=== PATIENT | female | born 1955 | race Caucasian/White ===

== ENCOUNTER 2016-09-18 14:41 | Emergency (ER) | payer BC ==
[2016-09-18 14:52] VITALS: BP 123/80
[2016-09-18] MEDS ORDERED: Ibuprofen TAB* 600 MG PO ONE (14:55)
--- NOTE | 2016-09-18 15:06 | UC ---
Upper Extremity HPI - HPI Summary HPI Summary: RAZIA after being pulled off-balance by dog today at 1400. Swelling in L wrist with pain radiating up arm. Denies hx of sx or fx in LUE. - History of Current Complaint Chief Complaint: UCUpperExtremity Stated Complaint: ARM INJURY Time Seen by Provider: 09/18/16 14:45 Hx Obtained From: Patient ?: No Onset/Duration: Sudden Onset Severity Initially: Moderate Severity Currently: Moderate Location Of Pain: Is Diffuse Character: Dull, Aching, Throbbing Alleviating Factor(s): Elevation, Ice Associated Signs And Symptoms: Positive: Swelling, Numbness/Tingling Related History: Dominant Hand Right - Allergies/Home Medications Allergies/Adverse Reactions: Allergies Allergy/AdvReac Type Severity Reaction Status Date / Time No Known Allergies Allergy Verified 09/18/16 14:52 PMH/Surg Hx/FS Hx/Imm Hx - Additional Past Medical History Additional PMH: osteopenia Endocrine History: Dyslipidemia - Surgical History Surgical History: Yes Surgery Procedure, Year, and Place: APPENDECTOMY, D&C - Family History Known Family History: Positive: Other - osteoporosis - Social History Alcohol Use: None Substance Use Type: None Smoking Status (MU): Never Smoked Tobacco Review of Systems Constitutional: Negative Skin: Negative Eyes: Negative ENT: Negative Respiratory: Negative Cardiovascular: Negative Gastrointestinal: Negative Genitourinary: Negative Motor: Negative Neurovascular: Negative Musculoskeletal: Arthralgia, Edema Neurological: Negative Psychological: Negative All Other Systems Reviewed And Are Negative: Yes Physical Exam Triage Information Reviewed: Yes Appearance: Well-Appearing, Well-Nourished, Pain Distress - mild Vital Signs: Initial Vital Signs Temp 97.7 F 09/18/16 14:48 Pulse 61 09/18/16 14:48 Resp 16 09/18/16 14:48 BP 123/80 09/18/16 14:48 Pulse Ox 100 09/18/16 14:48 Vital Signs Reviewed: Yes Eye Exam: Normal Eyes: Positive: Conjunctiva Clear ENT Exam: Normal ENT: Positive: Normal ENT inspection, Hearing grossly normal, Pharynx normal, TMs normal Dental Exam: Normal Neck exam: Normal Neck: Positive: Supple, Nontender, No Lymphadenopathy Respiratory Exam: Normal Respiratory: Positive: Chest non-tender, Lungs clear, Normal breath sounds, No respiratory distress, No accessory muscle use Cardiovascular Exam: Normal Cardiovascular: Positive: RRR, No Murmur Musculoskeletal Exam: Other - tender, swelling in L distal radius Musculoskeletal: Positive: Strength Limited @ - L bacon slicer, ROM Limited @ - L wrist Neurological Exam: Normal Neurological: Positive: Alert Psychological Exam: Normal Skin Exam: Normal Procedures - Splinting Location: L wrist Hand-Made Type: orthoglass Splint: wrist Pre-Proc Neuro Vasc Exam: normal Post-Proc Neuro Vasc Exam: normal Upper Extremity Course/Dx - Differential Dx/Diagnosis Provider Diagnoses: L radius distal fracture closed, impacted, comminuted, intra -articular. L ulnar styloid process avulsion fracture Discharge - Discharge Plan Condition: Stable Disposition: HOME Patient Education Materials: Wrist Fracture in Adults (ED) Referrals: Haris Sheehan MD [Primary Care Provider] - Colin Gramajo MD [Medical Doctor] - 4 Days Additional Instructions: Keep injured wrist elevated as much as possible over the next 3 days and arrange for follow-up with the orthopedics office. Keep the splint on all the time until you are fitted for a cast or another splint.
--- NOTE | 2016-09-18 15:27 | RAD ---
INDICATION: Left wrist injury. TECHNIQUE: 3 views of the left wrist were obtained. FINDINGS: There is diffuse soft tissue swelling. There is a transverse comminuted fracture of the distal radius which is slightly impacted. A component of the fracture extends to the distal articular surface. In addition, there is a small avulsion fracture fragment arising from the tip of the ulnar styloid process. IMPRESSION: 1. TRANSVERSE, SLIGHTLY IMPACTED, COMMINUTED, INTRA-ARTICULAR FRACTURE OF THE DISTAL RADIUS. 2. FRACTURE OF THE TIP OF THE ULNAR STYLOID PROCESS.
== END 2016-09-18 16:20 | disposition home or self-care (01) ==
LOC: UCEAST 14:41
DX: S52.572A Other intraarticular fracture of lower end of left radius, initial encounter for closed fracture (principal); S52.612A Displaced fracture of left ulna styloid process, initial encounter for closed fracture; W18.31XA Fall on same level due to stepping on an object, initial encounter
CPT/HCPCS: 99212; A9270-GY; G0463

== ENCOUNTER 2016-11-21 05:58 | Day surgery (SDC) | payer BC ==
--- NOTE | 2016-11-02 21:24 | HP ---
CC: Dr. Gomez * HISTORY AND PHYSICAL: DATE OF PLANNED ADMISSION AND SURGERY: 11/21/16 HISTORY OF PRESENT ILLNESS: Ms. Mercedes is a 61-year-old white female, who is admitted with 1 cm calculus of the lower pole of the left kidney for shockwave lithotripsy. I had seen Ms. Mercedes back in 2009 because of recurrent episodes of gross painless hematuria. At that time she was worked up with a cystoscopy which was negative and a CT urogram which was normal. Her urine cytologies were also negative. She continued to have microscopic hematuria, but she has remained asymptomatic. I saw her recently because of recurrence of on and off pinkish colored urine. This was totally asymptomatic, not associated with any flank or abdominal pain and no voiding symptoms. She did not have any symptoms to suggest renal colic. She had a renal ultrasound, which showed a 1 cm non-obstructing calculus in the lower pole calyx of the left kidney. No other abnormalities were noted. She then had a KUB, which confirmed the presence of an 8 mm radiopaque calculus in the lower pole calyx of the left kidney. No other abnormal calcifications were noted. Because of that finding, the patient is admitted for the above procedure. PAST MEDICAL HISTORY AND SYSTEM REVIEW: She is in very good health. She is on simvastatin for hyperlipidemia. She takes glucosamine for arthritis. She is on calcium supplement. She is otherwise in very good health. She denies any cardiac or pulmonary diseases or symptoms. She denies any allergies to medications. She is a nonsmoker. PHYSICAL EXAMINATION GENERAL: Pleasant and healthy looking white female. VITAL SIGNS: Blood pressure 110/76, pulse of 74. LUNGS: Clear. HEART: Regular and rhythmic. No murmurs. ABDOMEN: Soft. No masses, no tenderness, and no CVA tenderness. IMPRESSION: 1. A 1 cm calculus in the lower pole calyx of the left kidney. 2. Episodes of gross hematuria, most likely due to above. PLAN: Plan is for shockwave lithotripsy of the left renal calculus with possible placement of a left ureteral stent. I discussed the above plans in detail with the patient. Some of the potential complications of the procedure including hematuria, left renal colic, possible need for ureteroscopy for stone extraction if the stone fragments obstruct her ureter. All her questions were answered. [id number]/[facility] #: [id number] PRISCILLA
[2016-11-21] MEDS ORDERED: cefTRIAXone VIAL(*) 1,000 MG VIAL ONE (06:00)
[2016-11-21] MEDS ORDERED: Famotidine IV* 10 MG/ML 2 ML (20 mg) IV ONE (06:00)
[2016-11-21] MEDS ORDERED: Famotidine IV* 10 MG/ML 2 ML (20 mg) ONE (06:00)
[2016-11-21] MEDS ORDERED: Buffered Lidocaine 0.9% SYRIN* 5 ML/SYR SYRINGE INTRADERM ONE (06:00)
[2016-11-21] MEDS ORDERED: Buffered Lidocaine 0.9% SYRIN* 5 ML/SYR SYRINGE ONE (06:01)
[2016-11-21] MEDS ORDERED: cefTRIAXone VIAL(*) 1,000 MG in NS 0.9% 50 ML* 50 ML IVPB ONE (07:00)
[2016-11-21] MEDS ORDERED: Iohexol 180 (CONTRAST) 10 ML SDV IV ONE (07:36)
[2016-11-21] MEDS ORDERED: fentaNYL* 50 MCG/ML 2 ML VIAL (100 MCG VIAL) ONE (07:45)
[2016-11-21] MEDS ORDERED: Midazolam* 1 MG/ML 5 ML VIAL (5 MG) ONE (07:45)
[2016-11-21] MEDS ORDERED: Propofol* 10 MG/ML 20 ML BTL IV PUSH ONE (08:07)
[2016-11-21] MEDS ORDERED: Dexamethasone IV* 4 MG/ML 1 ML (4 MG) ONE (08:07)
[2016-11-21] MEDS ORDERED: Ondansetron INJ* 2 MG/ML VIAL ONE (08:07)
[2016-11-21] MEDS ORDERED: Lidocaine 2% PF * 5 ML VIAL ONE (08:07)
--- NOTE | 2016-11-21 08:20 | RAD ---
Indication: Preshock wave lithotripsy. LEFT renal stone. Comparison: October 19, 2016 Technique: Supine abdomen. Report: 0.7 cm lower pole LEFT renal stone is unchanged. No additional conspicuous suspicious calcifications at the level of the kidneys or along the expected course of the ureters. Innumerable pelvic phleboliths. Large volume of stool in the colon. Unremarkable soft tissue contours. IMPRESSION: Unchanged 0.7 cm LEFT renal stone.
[2016-11-21] MEDS ORDERED: DiMENhydriNATE IV* 50 MG/ML VIAL IV PUSH PRN (08:32)
[2016-11-21] MEDS ORDERED: HYDROmorphone* 1 MG/ML 1 ML SYR IV PRN (08:32)
[2016-11-21] MEDS ORDERED: oxyCODONE TAB* 5 MG TAB PO PRN (08:32)
[2016-11-21] MEDS ORDERED: Acetaminophen TAB* 325 MG PO PRN (08:32)
[2016-11-21 10:03] VITALS: BP 128/84
--- NOTE | 2016-11-21 22:33 | OP ---
CC: Dr. Sheehan * DATE OF OPERATION: 11/21/16 - [facility] DATE OF : 59 SURGEON: Anselmo Osorio MD ANESTHESIOLOGIST: Vanessa Brannon MD ANESTHESIA: General PRE-OP DIAGNOSIS: Left renal calculus (8 to 10 mm). POST-OP DIAGNOSIS: Left renal calculus (8 to 10 mm). OPERATIVE PROCEDURE: Shockwave lithotripsy of left renal calculus. INDICATIONS: Ms. Mercedes is a 61-year-old white female who was worked up because of painless gross hematuria. Cystoscopy was negative. Renal ultrasound and KUB showed an 8 to 10 mm calculus in the lower pole calyx of the left kidney. No hydronephrosis was noted. Because of the above history and findings, the patient was admitted for the above procedure. PATHOLOGY: Preoperative KUB confirmed the presence of an 8 to 10 mm rather dense calculus in the lower pole calyx of the left kidney. No other abnormal calcifications were noted. DESCRIPTION OF PROCEDURE: After successful general anesthesia, patient was placed in the supine position on the shockwave lithotripsy table. The left renal calculus was visualized in both the PA and the oblique x-ray views and the position of the generator and the patient were adjusted to have the stone in the focus of the shock waves. A total of 2,400 shocks were then delivered at the rate of 90 shocks per minute. Three minutes break was taken after the initial 300 shocks. The proper positioning and fragmentation of the stone were monitored periodically. At the completion of the treatment, there seemed to a slight change in the configuration of the stone, possibly indicating its fragmentation. Because the stone is located in the lower pole calyx, it was decided not to put a stent. The patient tolerated the procedure well and left the operating room in good condition. The plan is to evaluate the patient in the office next week with a followup KUB and renal ultrasound. If the stone is not fragmented, then the patient will require either a PCNL or URS. [id number]/[facility] #: [id number] MTDD
== END 2016-11-21 10:04 | disposition home or self-care (01) ==
LOC: OR 05:58
PROVIDERS: ATTEND Urology
DX: N20.0 Calculus of kidney (principal); E78.5 Hyperlipidemia, unspecified; M19.90 Unspecified osteoarthritis, unspecified site
CPT/HCPCS: 74000; J0696; J1100; J2250; J2405; J2704; J3010

== ENCOUNTER 2019-05-01 10:13 | Emergency (ER) | payer BC ==
--- OUTSIDE RECORDS SUMMARY | 2019-05-01 10:23 | XMS REPORT | Continuity of Care Document ---
:1955 External Reference #:[id number] Author Name Candie Lam (transmitted by agent of provider Preet Gomez) Address [address] [place] [id number] Care Team Providers Name Role Phone Loli Humphrey MD - Obstetrics & Care Team Information Cpo Gynecology Problems Active Problems Provider Date Pure hypercholesterolemia Candie Lam Onset: 08/24/2012 Social History Type Date Description Comments Sex Unknown Tobacco Use Start: Unknown Denies Cigarette Use ETOH Use Denies alcohol use Recreational Drug Use Denies Drug Use Tobacco Use Start: Unknown Non Smoker Smoking Status Reviewed: 03/22/19 Non Smoker Sun Exposure minimum amount of sun exposure Sun Exposure Uses sunscreen Seat Belt/Car Seat always uses seat belt Allergies, Adverse Reactions, Alerts Description No Known Drug Allergies Medications Active Medications SIG Qnty Indications Ordering Provider Date B 12 one po daily Unknown 10/11/2017 Ginkgo Biloba one po daily Unknown 10/11/2017 Capsules Simvastatin Take One Tablet 90tabs Haris Sheehan, 12/01/2015 40mg By Mouth Every M.D. Tablets Evening Glucosamine daily Haris Sheehan, 09/27/2013 Liquid M.D. Calcium 1200 w/Vitamin D Haris Sheehan, 05/30/2013 M.D. [id number] Chewtabs Medications Administered in Office Medication SIG Qnty Indications Ordering Provider Date H1N1 Swine Flu Vaccine Nurse's Schedule 04/10/2009 Injection Immunizations CPT Code Status Date Vaccine Lot # [id number] Given 11/26/2018 Influenza Virus Vaccine, Quadrivalent, Split, Preservative Free 46198 Given 12/09/2017 Influenza Virus Vaccine, Quadrivalent, Split, Preservative Free 30493 Given 11/10/2016 Influenza Virus Vaccine, Quadrivalent, Split, Preservative Free 34135 Given 11/10/2016 Prevnar 13 U-Flu Given 11/20/2015 Influenza,Unspecified 57050 Given 11/13/2014 Flu, Split Virus 3Yrs 24496 Given 11/20/2013 Flu, Split Virus 3Yrs 57221 Given 12/25/2012 Flu, Split Virus 3Yrs 73585 Given 11/04/2011 Flu, Split Virus 3Yrs 16665 Given 08/24/2011 Adacel or Boostrix, TDaP [id number] 63128 Given 12/12/2008 Flu, Split Virus 3Yrs 13628 Given 02/05/2007 Flu, Split Virus 3Yrs [id number] 57758 Given 03/03/2006 Adacel or Boostrix, TDaP [id number] 20173 Given 01/23/2006 Flu, Split Virus 3Yrs [id number] 96560 Given 03/27/2002 Flu, Split Virus 3Yrs 93124 Given 03/27/2001 Hep B Immunization, Adult Vital Signs Date Vital Result Comment 03/22/2019 8:23am BP Systolic 110 mmHg BP Diastolic 66 mmHg Height 64.25 inches 5'4.25" Weight 150.00 lb BMI (Body Mass Index) 25.5 kg/m2 10/26/2017 10:04am BP Systolic 116 mmHg BP Diastolic 70 mmHg Results Test Acquired Date Facility Test Result H/L Range Note Laboratory test 03/22/2019 [facility] Cytology SEE RESULT 1 finding [phone] BELOW Lipid Profile 03/22/2019 [facility] Triglycerides 150 mg/dL 2 (Trig/Chol/HDL) [phone] Cholesterol 214 mg/dL 3 HDL Cholesterol 49.5 mg/dL 4 LDL Cholesterol 135 mg/dL 5 Basic Metabolic Panel 03/22/2019 [facility] Sodium 142 mmol/L Normal 135-145 [phone] Potassium 4.1 mmol/L Normal 3.5-5.0 Chloride 107 mmol/L Normal 101-111 Co2 Carbon Dioxide 30 mmol/L Normal 22-32 Anion Gap 5 mmol/L Normal 2-11 Glucose 93 mg/dL Normal 70-100 Blood Urea Nitrogen 10 mg/dL Normal 6-24 Creatinine 0.70 mg/dL Normal 0.51-0.95 BUN/Creatinine Ratio 14.3 Normal 8-20 Calcium 9.0 mg/dL Normal 8.6-10.3 Egfr Non- 85.1 >60 Egfr 102.9 >60 6 Laboratory test 03/22/2019 [facility] Vitamin B12 860 pg/mL Normal 180-914 7 finding [phone] 1,25 Dihydroxy 03/22/2019 [facility] Calcitriol 40 pg/mL 18-78 8 Vitamin D [phone] 1 SEE RESULT BELOW Name: MARLY MCPHERSON : [address]: Mercedes PEDRAZA Acct: [id number] Unit: [id number] AGE: 63 Location: [facility] Re03/22/19 SEX: F Status: REG REF SPEC: [id number] ROSITA: 03/22/19-[address]: Mercedes PEDRAZA REQ: [id number] RECD: 03/22/19994 STATUS: SOUT _ ORDERED: TP IMAGE ANALYS, PLATFORM WORKER PHYS INTERP, HPV/Thin Prep COMMENTS: [id number] FINAL DIAGNOSIS Negative for Intraepithelial lesion or Malignancy Trichomonas vaginalis Reactive cellular changes associated with Inflammation (includes typical repair) HPV RESULTS Date Time Test Result Flag (u) Normal Range 03/22/19 1135 HPV STERLING Negative Negative The high-risk HPV types detected by the assay include: 16, 18, 31, 33, 35, 39, 45, 51, 52, 56, 58, 59, 66, and 68. SPECIMEN(S) RECEIVED A. Ectocervical/Endocervical CYTOLOGY ADEQUACY Specimen Adequacy: Satisfactory of evaluation Transformation zone component identified CONTINUED ON NEXT PAGE DEPARTMENT OF PATHOLOGY, [address] [place] [address] Aly Suarez M.D. Director [facility] # [id number] CYTOLOGY PATIENT INFORMATION Patient Information: HPV: High risk HPV RNA testing regardless of pap results. Actual Specimen Date: 03/22/19 ?: N Post Menopausal?: Y Hysterectomy?: N Signed by and Reported on: Linh Berrios MD 03/28/19 7364 This Pap test was evaluated with the assistance of the [employer] Test Imaging System. Due to cytologic findings at the wood form builder microscope, comprehensive manual rescreening by a Clothes Separator may be required. The Pap Smear is a screening test designed to aid in the detection of premalignant and malignant conditions of the uterine cervix. It is not a diagnostic procedure and should not be used as the sole means of detecting cervical cancer. Both false- positive and false- negative reports do occur. Depending on your risk status, a Pap smear should be obtained and evaluated every 1-3 years. END OF REPORT DEPARTMENT OF PATHOLOGY, [address] [place] [address] Aly Suarez M.D. Director [facility] # [id number] 2 Desirable: <150 Borderline High: 150-199 High: 200-499 Very High: >500 3 Desirable: <200 Borderline High: 200-239 High: >239 4 Low: <40 Desirable: 40-60 High: >60 5 Desirable: <100 Near Optimal: 100-129 Borderline High: 130-159 High: 160-189 Very High: >189 6 Because ethnic data is not always readily available, this report includes an eGFR for both -Americans and non- Americans. The National Kidney Disease Education Program (NKDEP) does not endorse the use of the MDRD equation for patients that are not between the ages of 18 and 70, are , have extremes of body size, muscle mass, or nutritional status, or are non- or non-. According to the National Kidney Foundation, irrespective of diagnosis, the stage of the disease is based on the level of kidney function: Stage Description GFR(mL/min/1.73 m(2)) 1 Kidney damage with normal or decreased GFR 90 2 Kidney damage with mild decrease in GFR 60-89 3 Moderate decrease in GFR 30-59 4 Severe decrease in GFR 15-29 5 Kidney failure <15 (or dialysis) 7 Normal Range 180 to 914 Indeterminate Range 145 to 180 Deficient Range <145 8 ADDITIONAL INFORMATION This test was developed and its performance characteristics determined by [facility] in a manner consistent with CLIA requirements. This test has not been cleared or approved by the U.S. Food and Drug Administration. Test Performed by: [facility] [address] [place] [address] Assistant Commissioner: Asif Dawson M.D. Ph.D.; CLIA# [id number] Procedures Date Code Description Status 03/22/2019 86062 Brief Emotional/Behav Assessment W/ Scoring Doc Per Completed Standard Inst 03/23/2018 42301107 Mammogram Completed 06/25/2016 53923417 Colonoscopy Completed Medical Devices Description No Information Available Encounters Type Date Location Provider Dx Diagnosis Office Visit 03/22/2019 Main Office Mercedes Roa P.A. R29.810 Facial weakness 8:00a E78.00 Pure hypercholesterolemia, unspecified Z12.31 Encntr screen mammogram for malignant neoplasm of breast Z12.4 Encounter for screening for malignant neoplasm of cervix Z00.00 Encntr for general adult medical exam w/o abnormal findings D51.9 Vitamin B12 deficiency anemia, unspecified E55.9 Vitamin D deficiency, unspecified Z13.31 Encounter for screening for depression Z68.25 Body mass index (BMI) 25.0-25.9, adult Assessments Date Code Description Provider 03/22/2019 R29.810 Facial weakness Mercedes Roa, P.A. 03/22/2019 E78.00 Pure hypercholesterolemia, unspecified [place], P.A. 03/22/2019 Z12.31 Encounter for screening mammogram for Mercedes Roa, P.A. malignant neoplasm of breast 03/22/2019 Z12.4 Encounter for screening for malignant neoplasm Mercedes [place], P.A. of cervix 03/22/2019 Z00.00 Encounter for general adult medical Mercedes Roa P.A. examination without abnormal findings 03/22/2019 D51.9 Vitamin B12 deficiency anemia, unspecified Mercedes [place], P.A. 03/22/2019 E55.9 Vitamin D deficiency, unspecified [place], P.A. 03/22/2019 Z13.31 Encounter for screening for depression Mercedes Roa, P.A. 03/22/2019 Z68.25 Body mass index (BMI) 25.0-25.9, adult Mercedes Roa, P.A. Plan of Treatment Future Appointment(s):03/23/2020 12:55 pm - Ana Cao MD at Main [facility] - Mercedes Roa P.A.R29.810 Facial weaknessComments:No change at all from last year MRI last year showed "normal brain."Follow up:If worsens, return to office and we will discuss a referral to cyqyvcohdL27.00 Pure hypercholesterolemia, icsxxtygbtpE79.31 Encounter for screening mammogram for malignant neoplasm of breastNew Xrays:Mammography, Screening, Bilateral, Scheduled: 04/09/19Z12.4 Encounter for screening for malignant neoplasm of nugpslR47.00 Encounter for general adult medical examination without abnormal qtcnfwgnY68.9 Vitamin B12 deficiency anemia, elupcereanwF15.9 Vitamin D deficiency, ohwmrsfodmfX22.31 Encounter for screening for rdfzbhvelkI11.25 Body mass index (BMI) 25.0-25.9, adult Functional Status Description No Information Available Mental Status Description No Information Available Referrals Description No Information Available
--- OUTSIDE RECORDS SUMMARY | 2019-05-01 10:23 | XMS REPORT | Continuity of Care Document ---
:1955 External Reference #:[id number] Author Name Candie Lam (transmitted by agent of provider Preet Gomez) Address [address] [place] [id number] Care Team Providers Name Role Phone Loli Humphrey MD - Obstetrics & Care Team Information Early Childhood Education Specialist [phone] Gynecology Problems Active Problems Provider Date Pure [...] 1200 w/Vitamin D Haris Sheehan, 05/30/2013 M.D. [id number] Chewtabs Medications Administered in Office Medication SIG Qnty Indications Ordering Provider Date H1N1 Swine Flu Vaccine Nurse's Schedule 04/10/2009 Injection Immunizations CPT Code Status Date Vaccine Lot # [id number] Given 11/26/2018 Influenza Virus Vaccine, Quadrivalent, Split, Preservative Free 47295 Given 12/09/2017 Influenza Virus Vaccine, Quadrivalent, Split, Preservative Free 07734 Given 11/10/2016 Influenza Virus Vaccine, Quadrivalent, Split, Preservative Free 16513 Given 11/10/2016 Prevnar 13 U-Flu Given 11/20/2015 Influenza,Unspecified 98238 Given 11/13/2014 Flu, Split Virus 3Yrs 24226 Given 11/20/2013 Flu, Split Virus 3Yrs 50220 Given 12/25/2012 Flu, Split Virus 3Yrs 20939 Given 11/04/2011 Flu, Split Virus 3Yrs 81740 Given 08/24/2011 Adacel or Boostrix, TDaP [id number] 67599 Given 12/12/2008 Flu, Split Virus 3Yrs 60447 Given 02/05/2007 Flu, Split Virus 3Yrs [id number] 85059 Given 03/03/2006 Adacel or Boostrix, TDaP [id number] 84419 Given 01/23/2006 Flu, Split Virus 3Yrs [id number] 57356 Given 03/27/2002 Flu, Split Virus 3Yrs 13753 Given 03/27/2001 Hep B Immunization, Adult Vital Signs Date Vital Result Comment 03/22/2019 8:23am BP Systolic 110 mmHg BP Diastolic 66 mmHg Height 64.25 inches 5'4.25" Weight 150.00 lb BMI (Body Mass Index) 25.5 kg/m2 10/26/2017 10:04am BP Systolic 116 mmHg BP Diastolic 70 mmHg Results Test Acquired Date Facility Test Result H/L Range Note Laboratory test 03/22/2019 [facility] Cytology SEE RESULT 1 finding [phone] BELOW Lipid Profile 03/22/2019 [facility] Triglycerides 150 mg/dL 2 (Trig/Chol/HDL) [phone] Cholesterol 214 mg/dL 3 HDL Cholesterol 49.5 mg/dL 4 LDL Cholesterol 135 mg/dL 5 Basic Metabolic Panel 03/22/2019 [facility] Sodium 142 mmol/L Normal 135-145 [phone] Potassium 4.1 mmol/L Normal 3.5-5.0 Chloride 107 mmol/L Normal 101-111 Co2 Carbon Dioxide 30 mmol/L Normal 22-32 Anion Gap 5 mmol/L Normal 2-11 Glucose 93 mg/dL Normal 70-100 Blood Urea Nitrogen 10 mg/dL Normal 6-24 Creatinine 0.70 mg/dL Normal 0.51-0.95 BUN/Creatinine Ratio 14.3 Normal 8-20 Calcium 9.0 mg/dL Normal 8.6-10.3 Egfr Non- 85.1 >60 Egfr 102.9 >60 6 Laboratory test 03/22/2019 [facility] Vitamin B12 860 pg/mL Normal 180-914 7 finding [phone] 1,25 Dihydroxy 03/22/2019 [facility] Calcitriol 40 pg/mL 18-78 8 Vitamin D [phone] 1 SEE RESULT BELOW Name: MARLY MCPHERSON : [address]: Mercedes PEDRAZA Acct: [id number] Unit: [id number] AGE: 63 Location: [facility] Re03/22/19 SEX: F Status: REG REF SPEC: [id number] ROSITA: 03/22/19-[address]: Mercedes PEDRAZA REQ: [id number] RECD: 03/22/19187 STATUS: SOUT _ ORDERED: TP IMAGE ANALYS, MEDICAL FILE CLERK PHYS INTERP, HPV/Thin Prep COMMENTS: [id number] FINAL DIAGNOSIS Negative for Intraepithelial lesion or [...] CONTINUED ON NEXT PAGE DEPARTMENT OF PATHOLOGY, [address] [place] [address] Aly Suarez M.D. Director [facility] # [id number] CYTOLOGY PATIENT INFORMATION Patient Information: HPV: High risk HPV RNA testing regardless of pap results. Actual Specimen Date: 03/22/19 ?: N Post Menopausal?: Y Hysterectomy?: N Signed by and Reported on: Linh Berrios MD 03/28/19 1306 This Pap test was evaluated with the assistance of the [employer] Test Imaging System. Due to cytologic findings at the through operator microscope, comprehensive manual rescreening by a Commissary Representative may be required. The Pap Smear is [...] years. END OF REPORT DEPARTMENT OF PATHOLOGY, [address] [place] [address] Aly Suarez M.D. Director [facility] # [id number] 2 Desirable: <150 Borderline High: 150-199 High: [...] developed and its performance characteristics determined by [facility] in a manner consistent with CLIA requirements. This test has not been cleared or approved by the U.S. Food and Drug Administration. Test Performed by: [facility] [address] [place] [address] Customer Relations Representative: Asif Dawson M.D. Ph.D.; CLIA# [id number] Procedures Date Code Description Status 03/22/2019 62566 Brief Emotional/Behav Assessment W/ Scoring Doc Per Completed Standard Inst 03/23/2018 92009409 Mammogram Completed 06/25/2016 54169386 Colonoscopy Completed Medical Devices Description No Information [...] P.A. 03/22/2019 E78.00 Pure hypercholesterolemia, unspecified Mercedes Valrico, P.A. 03/22/2019 Z12.31 Encounter for screening mammogram for Mercedes Roa, P.A. malignant neoplasm of breast 03/22/2019 Z12.4 Encounter for screening for malignant neoplasm Mercedes Guevarale, P.A. of cervix 03/22/2019 Z00.00 Encounter for general adult medical Mercedes Roa P.A. examination without abnormal findings 03/22/2019 D51.9 Vitamin B12 deficiency anemia, unspecified Mercedes Valrico, P.A. 03/22/2019 E55.9 Vitamin D deficiency, unspecified Mercedes Valrico, P.A. 03/22/2019 Z13.31 Encounter for screening for depression Mercedes Roa, P.A. 03/22/2019 Z68.25 Body mass index (BMI) 25.0-25.9, adult Mercedes Roa, P.A. Plan of Treatment Future Appointment(s):03/23/2020 12:55 pm - Ana Cao MD at [id number] - Mercedes Roa P.A.R29.810 Facial weaknessComments:No change at all from last year MRI last year showed "normal brain."Follow up:If worsens, return to office and we will discuss a referral to smrckaqmcW83.00 Pure hypercholesterolemia, xkzxslvuyxmJ67.31 Encounter for screening mammogram for malignant neoplasm of breastNew Xrays:Mammography, Screening, Bilateral, Scheduled: 04/09/19Z12.4 Encounter for screening for malignant neoplasm of gndcqdK92.00 Encounter for general adult medical examination without abnormal zsgsliijK48.9 Vitamin B12 deficiency anemia, lygbjgnlvzjL48.9 Vitamin D deficiency, rwfyfjuaiamN23.31 Encounter for screening for jvbqslnezlY00.25 Body mass index (BMI) 25.0-25.9, adult Functional Status Description No Information Available Mental Status Description No Information Available Referrals Description No Information Available
--- OUTSIDE RECORDS SUMMARY | 2019-05-01 10:23 | XMS REPORT | Continuity of Care Document ---
:1955 External Reference #:[id number] Author Name Mckinley Escobedo M.D. Address [address] [place] [address] Care Team Providers Name Role Phone Haris Sheehan M.D. - Family Care Team Information Intake Specialist Medicine Andres Bateman O.D. - Manager Dish Care Team Information Intake Specialist Problems Active Problems Provider Date Hypercholesterolemia Onset: Ocular hypertension Mckinley Escobeod M.D. Onset: 11/04/2014 Nuclear senile cataract Mckinley Escobedo M.D. Onset: 11/04/2014 Esotropia Mckinley Escobedo M.D. Onset: 11/04/2014 Combined form of senile cataract Mckinley Escobedo M.D. Onset: 11/17/2015 Tear film insufficiency Josselyn Singh O.D. Onset: 02/04/2016 Monocular esotropia Mckinley Escobedo M.D. Onset: 06/21/2016 Social History Type Date Description Comments Sex Unknown ETOH Use Denies alcohol use Tobacco Use Start: Unknown Patient has never smoked Recreational Drug Use Denies Drug Use Smoking Status Reviewed: 04/15/19 Patient has never smoked Allergies, Adverse Reactions, Alerts Description No Known Drug Allergies Medications Active Medications SIG Qnty Indications Ordering Provider Date Artificial Tears 1 drop both eyes Mckinley Escobedo, 11/03/2014 three times a M.D. 0.2-0.2-1% Solution day Calcium 500+D Unknown [id number] Tablets Glucosamine Unknown Zocor Unknown 80mg Tablets B Complex-B12 Unknown Tablets Ginkoba Unknown 40mg Tablets Biotin Unknown 1mg Capsules Immunizations Description No Information Available Vital Signs Description No Information Available Results Description No Information Available Procedures Description No Information Available Medical Devices Description No Information Available Encounters Description No Information Available Assessments Date Code Description Provider 04/15/2019 H40.053 Ocular hypertension, bilateral Mckinley Escobedo M.D. 04/15/2019 H25.813 Combined forms of age-related cataract, Mckinley Escobedo M.D. bilateral 04/15/2019 H50.012 Monocular esotropia, left eye Mckinley Escobedo M.D. Plan of Treatment 04/15/2019 - Mckinley Escobedo M.D.H40.053 Ocular hypertension, bilateralComments :Smoking can increase the risk of developing or worsening any eye related disease, as well as affect your overall health. If you are a smoker, we strongly recommend that you quit.If you are not a smoker, we strongly recommend that you do not start. You have Ocular Hypertension in both eyes. This means that your eye pressure is higher than average, but you have not been diagnosed with Glaucoma.Follow up:1 Year Follow Up DFE/IOP OCT ON Visual Field 30-2 You can expect to have your eyes dilated at your next visit. If Dr. Escobedo orders any additional testing, it may require extra time. We recommend that you bring sunglasses, as dilation drops often make you light sensitive until they wear off. We alwaysrecommend you bring someone to drive you home if you are uncomfortable driving with your eyes dilated. If you have any questions before your next visit, feel free to call our office at .H23.81 Combined forms of age-related cataract, bilateralComments:You have been diagnosed with cataracts. If you are happy with your vision as it is now, then we willsee you at your next scheduled appointment. If you feel like your vision is getting worse before your scheduled appointment, please call Emily or Laura at [phone].H50.450 Monocular esotropia, left eye Functional Status Description No Information Available Mental Status Description No Information Available Referrals Description No Information Available
[2019-05-01 10:37] VITALS: BP 124/80
[2019-05-01] MEDS ORDERED: Aspirin TAB* 325 MG PO ONE (11:00)
--- NOTE | 2019-05-01 11:07 | UC ---
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 Substernal chest pain, lasted 15 minutes and resolved on its own. Under a lot of stress lately. This is her third episode over the past month. The prior two her pain radiated to the right side. Today had some belching. No nausea, SOB, diaphoresis. Denies any heavy lifting or dietary changes. Does not take an aspirin PMHx: HLD Never had a stress test Had GI illness one month ago - History of Current Complaint Chief Complaint: UCChestPain Stated Complaint: CHEST PAIN Time Seen by Provider: 05/01/19 10:32 Pain Intensity: 0 - Allergy/Home Medications Allergies/Adverse Reactions: Allergies Allergy/AdvReac Type Severity Reaction Status Date / Time No Known Allergies Allergy Verified 05/01/19 10:32 Home Medications: Home Medications Ginkgo Biloba [place] Extract [Ginkgo Biloba] 1 dose PO DAILY 05/01/19 [History Confirmed 05/01/19] Vitamin B Complex [Super B-50 Complex] 1 tab PO DAILY 05/01/19 [History Confirmed 05/01/19] PMH/Surg Hx/FS Hx/Imm Hx Previously Healthy: Yes Endocrine History: Dyslipidemia - Surgical History Surgical History: Yes Surgery Procedure, Year, and Place: APPENDECTOMY, D&C, LITHOTRIPSY. eye surgery x2 - Family History Known Family History: Positive: Other - osteoporosis - Social History Alcohol Use: None Substance Use Type: None Smoking Status (MU): Never Smoked Tobacco Have You Smoked in the Last Year: No Review of Systems All Other Systems Reviewed And Are Negative: Yes Cardiovascular: Positive: Chest Pain Physical Exam Triage Information Reviewed: Yes Appearance: Well-Appearing Vital Signs: Initial Vital Signs Temp 97.4 F 05/01/19 10:28 Pulse 76 05/01/19 10:28 Resp 18 05/01/19 10:28 BP 124/80 05/01/19 10:28 Pulse Ox 99 05/01/19 10:28 Vital Signs Reviewed: Yes ENT: Positive: Normal ENT inspection Respiratory: Positive: Lungs clear, Normal breath sounds Cardiovascular: Positive: RRR, Other: - soft systolic murmur Abdomen Description: Positive: Soft Diagnostics - EKG Cardiac Rate: NL Course/Dx - Course Course Of Treatment: This is a 63 yr old with PMHx of HLD presents with chest pain EKG: NSR - no comparison Discussed patient should travel by ambulance, she declined. She is currently chest pain free. Wants to drive by private vehicle Sign out given to Dr. Maxwell Plan Aspirin 325 mg given in urgent care Recommend driving directly to the [facility] Emergency Department for further evaluation If you start to develop chest pain or short of breath, char puller and call 911 - Diagnoses Provider Diagnosis: Chest pain Discharge ED - Sign-Out/Discharge Documenting (check all that apply): Patient Departure All imaging exams completed and their final reports reviewed: No Studies - Discharge Plan Condition: Fair Disposition: HOME-RECOMMEND TO ED Referrals: Haris Sheehan MD [Primary Care Provider] - Additional Instructions: Aspirin 325 mg given in urgent care Recommend driving directly to the [facility] Emergency Department for further evaluation If you start to develop chest pain or short of breath, char puller and call 911 - Billing Disposition and Condition Condition: FAIR Disposition: Home-Recommend to ED
== END 2019-05-01 11:07 | disposition home health service (06) ==
LOC: UCEAST 10:13
DX: R07.9 Chest pain, unspecified (principal)
CPT/HCPCS: 93005; 99212; G0463

== ENCOUNTER 2019-05-01 11:46 | Emergency (ER) | payer BC ==
[2019-05-01 12:36] LABS: ABS Basophils 0.1 10^3/ul (0-0.2); ABS Eosinophils 0.1 10^3/ul (0-0.6); ABS Lymphocytes 1.3 10^3/ul (1.0-4.8); ABS Monocytes 0.4 10^3/ul (0-0.8); ABS Neutrophils 4.5 10^3/ul (1.5-7.7); Hematocrit 40 % (35-47); Hemoglobin 13.9 g/dL (12.0-16.0); Lymphocyte % 20.2 %; Mean Corpuscular HGB Conc 35 g/dL (31-36); Mean Corpuscular Hemoglobin 32 pg (27-31); Mean Corpuscular Volume 92 fL (80-97); Mean Platelet Volume 7.7 fL (7.4-10.4); Platelet Count 206 10^3/uL (150-450); Red Blood Count 4.36 10^6 /uL (3.70-4.87); Red Cell Distribution Width 14 % (10-15); White Blood Count 6.2 10^3/uL (3.5-10.8)
[2019-05-01 13:01] LABS: Albumin 4.4 g/dL (3.2-5.2); Albumin/Globulin Ratio 1.8 (1-3); BUN/Creatinine Ratio 17.8 (8-20); Calcium 9.4 mg/dL (8.6-10.3); EGFR African American 98.1 (>60); Globulin 2.5 g/dL (2-4); Potassium 4.3 mmol/L (3.5-5.0); Total Bilirubin 1.2 mg/dL (0.2-1.0); Total Protein 6.9 g/dL (6.4-8.9)
[2019-05-01 13:07] LABS: INR 0.93 (0.82-1.09)
--- NOTE | 2019-05-01 14:39 | ED ---
HPI Chest Pain - HPI Summary HPI Summary: 63 year old F presenting to [facility] alone complains of episodes of clenching CP lasting around 15 minutes since the beginning of the year with one happening this morning 05/01/2019. Patient reports CP was in center of chest in the episode but that it was on the right last time with no radiation in either episode. Pain is not affected by deep breaths. Patient denies SOB, nausea, vomiting, and diaphoresis. PMHx of appendicitis, kidney stones and anxiety attacks. No PMHx of cardiac issues but has low BP with a baseline of 110/60. The patient rates the pain 0/10 in severity currently. Symptoms aggravated by nothing. Symptoms alleviated by nothing. - History of Current Complaint Chief Complaint: EDChestPainROMI Time Seen by Provider: 05/01/19 14:27 Hx Obtained From: Patient Onset/Duration: Started Hours Ago, Resolved Timing: Intermittent - last for around 15 minutes Current Severity: None Pain Intensity: 0 Pain Scale Used: 0-10 Numeric Chest Pain Location: Discrete at: - center of chest Chest Pain Radiates: No Character: Pressure/Squeezing - "clenching" Aggravating Factor(s): Nothing Alleviating Factor(s): Nothing Associated Signs and Symptoms: Positive: Negative - negative- diaphoresis, Chest Pain - intermittent episodes lasting for 15 minutes. "clenching". Negative: Shortness of Breath, Nausea, Vomiting - Allergy/Home Medications Allergies/Adverse Reactions: Allergies Allergy/AdvReac Type Severity Reaction Status Date / Time No Known Allergies Allergy Verified 05/01/19 10:32 Home Medications: Home Medications Calcium Carb, Citrate/Vit D3 [Calcium + D3 ER Tablet] 1 each PO BID 05/01/19 [ History Confirmed 05/01/19] Glucosam/Chondr/Collagn/Hyalur [Th Glucosamine/Chondroiti] 1 cap PO DAILY [History Confirmed 05/01/19] PMH/Surg Hx/FS Hx/Imm Hx Endocrine/Hematology History: Denies: Hx Diabetes Cardiovascular History: Denies: Hx Hypertension, Hx Pacemaker/ICD Respiratory History: Denies: Hx Asthma GI History: Reports: Other GI Disorders - 206 UMBILICAL HERNIA History: Reports: Hx Kidney Stones - LEFT 10/19/16 Musculoskeletal History: Reports: Hx Osteoporosis - MOTHER, Other Musculoskeletal History - FX LEFT ARM, CURRENTLY IN A SHORT ARM CAST Denies: Hx Rheumatoid Arthritis Sensory History: Reports: Hx Contacts or Glasses - BOTH, WILL WEAR GLASSES DOS Denies: Hx Hearing Aid Opthamlomology History: Reports: Hx Contacts or Glasses - BOTH, WILL WEAR GLASSES DOS Psychiatric History: Reports: Hx Anxiety - IN THE , OK NOW Denies: Hx Panic Disorder - Cancer History Hx Chemotherapy: No Hx Radiation Therapy: No - Surgical History Surgery Procedure, Year, and Place: APPENDECTOMY, D&C, LITHOTRIPSY. eye surgery x2 Hx Anesthesia Reactions: No Infectious Disease History: No Infectious Disease History: Denies: Traveled Outside the [place] in Last 30 Days - Family History Known Family History: Positive: Other - osteoporosis - Social History Alcohol Use: None Substance Use Type: Reports: None Smoking Status (MU): Never Smoked Tobacco Have You Smoked in the Last Year: No Review of Systems Negative: Skin Diaphoresis Positive: Chest Pain - intermittent and "clenching" Negative: Shortness Of Breath Negative: Vomiting, Nausea All Other Systems Reviewed And Are Negative: Yes Physical Exam - Summary Physical Exam Summary: Constitutional: Well-developed, Well-nourished, Alert. (-) Distressed Skin: Warm, Dry HENT: Normocephalic; Atraumatic Eyes: Conjunctiva normal Neck: Musculoskeletal ROM normal neck. (-) JVD, (-) Stridor, (-) Tracheal deviation Cardio: Rhythm regular, rate normal, Heart sounds normal; Intact distal pulses; The pedal pulses are 2+ and symmetric. Radial pulses are 2+ and symmetric. (-) Murmur Pulmonary/Chest wall: Effort normal. (-) Respiratory distress, (-) Wheezes, (-) Rales Abd: Soft, (-) tenderness, (-) Distension, (-) Guarding, (-) Rebound Musculoskeletal: (-) Edema Lymph: (-) Cervical adenopathy Neuro: Alert, Oriented x3 Psych: Mood and affect Normal Triage Information Reviewed: Yes Vital Signs On Initial Exam: Initial Vitals Temp Pulse Resp BP Pulse Ox 98.7 F 70 16 132/72 100 05/01/19 11:53 05/01/19 11:53 05/01/19 11:53 05/01/19 11:53 05/01/19 11:53 Vital Signs Reviewed: Yes Procedures - Sedation Patient Received Moderate/Deep Sedation with Procedure: No Diagnostics - Vital Signs Vital Signs Temp Pulse Resp BP Pulse Ox 05/01/19 13:52 98.6 F 61 17 129/68 100 05/01/19 11:53 98.7 F 70 16 132/72 100 - Laboratory Lab Results: Lab Results 05/01/19 05/01/19 05/01/19 Range/Units 12:14 12:14 12:14 WBC 6.2 (3.5-10.8) 10^3/uL RBC 4.36 (3.70-4.87) 10^6 /uL Hgb 13.9 (12.0-16.0) g/dL Hct 40 (35-47) % MCV 92 (80-97) fL MCH 32 H (27-31) pg MCHC 35 (31-36) g/dL RDW 14 (10-15) % Plt Count 206 (150-450) 10^3/uL MPV 7.7 (7.4-10.4) fL Neut % (Auto) 72.1 % Lymph % (Auto) 20.2 % [place] % (Auto) 5.8 % Eos % (Auto) 1.0 % Baso % (Auto) 0.9 % Absolute Neuts (auto) 4.5 (1.5-7.7) 10^3/ul Absolute Lymphs (auto) 1.3 (1.0-4.8) 10^3/ul Absolute Monos (auto) 0.4 (0-0.8) 10^3/ul Absolute Eos (auto) 0.1 (0-0.6) 10^3/ul Absolute Basos (auto) 0.1 (0-0.2) 10^3/ul Absolute Nucleated RBC 0.0 10^3/ul Nucleated RBC % 0.0 INR (Anticoag Therapy) 0.93 (0.82-1.09) Sodium 141 (135-145) mmol/L Potassium 4.3 (3.5-5.0) mmol/L Chloride 108 (101-111) mmol/L Carbon Dioxide 27 (22-32) mmol/L Anion Gap 6 (2-11) mmol/L BUN 13 (6-24) mg/dL Creatinine 0.73 (0.51-0.95) mg/dL Est GFR ( Amer) 98.1 (>60) Est GFR (Non-Af Amer) 81.0 (>60) BUN/Creatinine Ratio 17.8 (8-20) Glucose 95 (70-100) mg/dL Calcium 9.4 (8.6-10.3) mg/dL Total Bilirubin 1.20 H (0.2-1.0) mg/dL AST 24 (13-39) U/L ALT 24 (7-52) U/L Alkaline Phosphatase 63 (34-104) U/L Troponin I 0.00 (<0.03) ng/mL Total Protein 6.9 (6.4-8.9) g/dL Albumin 4.4 (3.2-5.2) g/dL Globulin 2.5 (2-4) g/dL Albumin/Globulin Ratio 1.8 (1-3) Result Diagrams: 05/01/19 12:14 05/01/19 12:14 Lab Statement: Any lab studies that have been ordered have been reviewed, and results considered in the medical decision making process. - EKG 1147 Cardiac Rate: NL EKG Rhythm: Sinus Rhythm Summary of EKG Findings: EKG at 1147 reveals sinus rhythm at 71 bpm. No ischemic changes. has reviewed and interpreted this report. Chest Pain Course/Dx - Course Course Of Treatment: 63 year old F presenting to [facility] alone complains of episodes of clenching CP lasting around 15 minutes since the beginning of the year with one happening this morning 05/01/2019. Physical exam findings: nml. Bloodwork results with no significant abnormalities except for H MCH, H Total Bilirubin. EKG at 1147 reveals sinus rhythm at 71 bpm. No ischemic changes. In the ED course, the patient was given nothing. Patient will be discharged home and was told to follow up with PCP in 1-2 days. Patient was instructed to return to Emergency Department for new or worsening symptoms. Patient understands and is agreeable to this plan. - Diagnoses Provider Diagnoses: Chest pain Discharge ED - Sign-Out/Discharge Documenting (check all that apply): Patient Departure - discharge - Discharge Plan Condition: Stable Disposition: HOME Patient Education Materials: Chest Pain (ED) Referrals: Haris Sheehan MD [Primary Care Provider] - 2 Days Additional Instructions: Follow up with your primary care provider in 1-2 days. Return to the Emergency Department for new or worsening symptoms. - Billing Disposition and Condition Condition: STABLE Disposition: Home - Attestation Statements Document Initiated by Scribe: Yes Documenting Scribe: Ever Zelaya Provider For Whom Scribe is Documenting (Include Credential): Can Aponte DO Scribe Attestation: IEver, scribed for Can Aponte DO on 05/01/19 at 1741. Scribe Documentation Reviewed: Yes Provider Attestation: The documentation as recorded by the scribeEver accurately reflects the service I personally performed and the decisions made by me, Can Aponte DO Status of Scribe Document: Viewed
[2019-05-01 16:39] VITALS: BP 129/90
== END 2019-05-01 16:39 | disposition home or self-care (01) ==
LOC: ED 11:46
DX: R07.9 Chest pain, unspecified (principal); Z87.442 Personal history of urinary calculi; Z90.89 Acquired absence of other organs
CPT/HCPCS: 36415; 80053; 84484; 85025; 85610; 93005; 99283